=== PATIENT | female | born 1955 | race Caucasian/White ===

== ENCOUNTER 2016-06-11 10:46 | Emergency (ER) | payer OTHER ==
[2016-06-11 11:04] VITALS: BP 168/109; PULSE 78; RESP 16; TEMP 98.6; O2SAT 95
--- NOTE | 2016-06-11 11:30 | EDPHY ---
H & P Chief Complaint Nursing Narrative: C/o bilat eye swelling, facial swelling and redness after photolight treatment Sunday. Denies trouble breathing, itching/ swelling in throat/tongue/mouth. Time Seen by Provider: 06/11/16 11:05 HPI/ROS: CHIEF COMPLAINT: Facial rash and periorbital swelling HISTORY OF PRESENT ILLNESS: The patient presents to the ED with the development of a diffuse erythematous facial rash associated with periorbital swelling for the past 2 days. The patient underwent a photo therapy treatment for rosacea performed by her plastic surgeon several days ago. The patient did have a topical lidocaine ointment prior to that procedure and also had an ultrasonographic jelly applied during the procedure. The patient has been using some topical aloe gel at home over the past 2 days. The patient did develop some crusty discharge from the erythematous skin over the past day. She denies any oral involvement, genital involvement or additional truncal/ extremity involvement. The patient has no significant past medical history. She denies taking additional medications. REVIEW OF SYSTEMS: A comprehensive 10 point review of systems is otherwise negative aside from elements mentioned in the history of present illness. Source: Patient Exam Limitations: No limitations - Personal History Current Tetanus Diphtheria and Acellular Pertussis (TDAP): Yes Tetanus Vaccine Date: within 10 years - Medical/Surgical History Hx Asthma: No Hx Chronic Respiratory Disease: No Hx Diabetes: No Hx Cardiac Disease: No Hx Renal Disease: No Hx Cirrhosis: No Hx Alcoholism: No Hx HIV/AIDS: No Hx Splenectomy or Spleen Trauma: No Other PMH: HTN, tonsillectomy - Social History Smoking Status: Never smoked - Physical Exam Exam: General Appearance: Alert, no distress Eyes: Mild periorbital swelling, no conjunctival injection ENT, Mouth: No oropharyngeal swelling, no intraoral lesions noted Respiratory: There are no retractions, lungs are clear to auscultation Cardiovascular: Regular rate and rhythm Gastrointestinal: Abdomen is soft and nontender, no masses, bowel sounds normal Neurological: A&O, normal motor function, normal sensory exam, normal cranial nerves Skin: Erythematous, slightly crusty rash noted to face consistent with likely contact dermatitis and possible overlying streptococcal pharyngitis Musculoskeletal: Neck is supple nontender Extremities: symmetrical, full range of motion Constitutional: Initial Vital Signs Temperature (C) 37 C 06/11/16 10:59 Heart Rate 78 06/11/16 10:59 Respiratory Rate 16 06/11/16 10:59 Blood Pressure 168/109 H 06/11/16 10:59 O2 Sat (%) 95 06/11/16 10:59 O2 Delivery Mode Room Air Allergies/Adverse Reactions: diphenhydramine HCl [From Benadryl] Allergy (Severe, Verified 06/11/16 11:01) Anxiety Home Medications: Medication Instructions Recorded CALCIUM 06/11/16 Cephalexin [Keflex] 500 mg PO QID #21 cap 06/11/16 Fish Oil 06/11/16 Losartan Potassium 06/11/16 VITAMIN D 06/11/16 predniSONE [prednisone 20mg (RX)] 3 tab PO DAILY #15 tab 06/11/16 Medical Decision Making ED Course/Re-evaluation: The patient is well-appearing without evidence of a likely drug reaction potentially complicated by a mild superficial cellulitis. The patient has no evidence of an intraoral oral rash. She has no evidence of systemic illness. The patient did start taking prednisone earlier today at a 40 mg dose. The patient will be advised to take 60 mg of prednisone daily for the next 5 days. The patient will be started on Keflex to cover for possible milder simplest. The patient is advised to return to the ED for any symptoms of systemic illness , worsening progressive rash, fever, difficulty breathing or other concerns. The patient will follow up with her regular director of occupational health for any unimproved symptoms. Differential Diagnosis: Differential diagnosis considered includes drug reaction, cellulitis, facial abscess, Bass-John syndrome, side-effect from phototherapy procedure Departure - Departure Disposition: Home, Routine, Self-Care Clinical Impression: Facial erythema Condition: Good Instructions: Allergies (ED) Additional Instructions: 1. Please take prednisone 60 mg daily for the next 5 days. 2. Please take antibiotics as prescribed for possible mild skin infection. 3. Please return to the ED or urgent care for markedly worsening symptoms, rash in new area of your body, any rash in your mouth or groin, fever or other concerns. 4. Cool compress to face as needed for next several days. 5. Please follow-up with your director of occupational health in 2-3 days for any unimproved symptoms Referrals: Shraddha Be [Primary Care Provider] - As per Instructions Prescriptions: Cephalexin [Keflex] 500 mg PO QID #21 cap predniSONE [prednisone 20mg (RX)] 3 tab PO DAILY #15 tab
--- NOTE | 2016-06-11 11:34 | UCPHY ---
H & P Time Seen by Provider: 06/11/16 11:05 Patient Type: New HPI/ROS: CHIEF COMPLAINT: Facial rash and periorbital swelling HISTORY OF PRESENT ILLNESS: The patient presents to the ED with the development of a diffuse erythematous facial rash associated with periorbital swelling for the past 2 days. The patient underwent a photo therapy treatment for rosacea performed by her plastic surgeon several days ago. The patient did have a topical lidocaine ointment prior to that procedure and also had an ultrasonographic jelly applied during the procedure. The patient has been using some topical aloe gel at home over the past 2 days. The patient did develop some crusty discharge from the erythematous skin over the past day. She denies any oral involvement, genital involvement or additional truncal/ extremity involvement. The patient has no significant past medical history. She denies taking additional medications. REVIEW OF SYSTEMS: A comprehensive 10 point review of systems is otherwise negative aside from elements mentioned in the history of present illness. Past Medical/Surgical History: Past medical history: Noncontributory Smoking Status: Never smoked Physical Exam: General Appearance: Alert, no distress Eyes: Mild periorbital swelling, no conjunctival injection ENT, Mouth: No oropharyngeal swelling, no intraoral lesions noted Respiratory: There are no retractions, lungs are clear to auscultation Cardiovascular: Regular rate and rhythm Gastrointestinal: Abdomen is soft and nontender, no masses, bowel sounds normal Neurological: A&O, normal motor function, normal sensory exam, normal cranial nerves Skin: Erythematous, slightly crusty rash noted to face consistent with likely contact dermatitis and possible overlying streptococcal pharyngitis Musculoskeletal: Neck is supple nontender Extremities: symmetrical, full range of motion Constitutional: Initial Vital Signs Temperature (C) 37 C 06/11/16 10:59 Heart Rate 78 06/11/16 10:59 Respiratory Rate 16 06/11/16 10:59 Blood Pressure 168/109 H 06/11/16 10:59 O2 Sat (%) 95 06/11/16 10:59 O2 Delivery Mode Room Air Allergies/Adverse Reactions: diphenhydramine HCl [From Benadryl] Allergy (Severe, Verified 06/11/16 11:01) Anxiety Home Medications: Medication Instructions Recorded CALCIUM 06/11/16 Cephalexin [Keflex] 500 mg PO QID #21 cap 06/11/16 Fish Oil 06/11/16 Losartan Potassium 06/11/16 VITAMIN D 06/11/16 predniSONE [prednisone 20mg (RX)] 3 tab PO DAILY #15 tab 06/11/16 Medical Decision Making ED Course/Re-evaluation: The patient is well-appearing without evidence of a likely drug reaction potentially complicated by a mild superficial cellulitis. The patient has no evidence of an intraoral oral rash. She has no evidence of systemic illness. The patient did start taking prednisone earlier today at a 40 mg dose. The patient will be advised to take 60 mg of prednisone daily for the next 5 days. The patient will be started on Keflex to cover for possible milder simplest. The patient is advised to return to the ED for any symptoms of systemic illness , worsening progressive rash, fever, difficulty breathing or other concerns. The patient will follow up with her regular assistant chief of police for any unimproved symptoms. Differential Diagnosis: Differential diagnosis considered includes cellulitis, drug reaction, burn, facial abscess, Bass-John syndrome Departure - Departure Disposition: Home, Routine, Self-Care Clinical Impression: Facial erythema Condition: Good Instructions: Allergies (ED) Additional Instructions: 1. Please take prednisone 60 mg daily for the next 5 days. 2. Please take antibiotics as prescribed for possible mild skin infection. 3. Please return to the ED or urgent care for markedly worsening symptoms, rash in new area of your body, any rash in your mouth or groin, fever or other concerns. 4. Cool compress to face as needed for next several days. 5. Please follow-up with your assistant chief of police in 2-3 days for any unimproved symptoms Referrals: Shraddha Be [Primary Care Provider] - As per Instructions Prescriptions: Cephalexin [Keflex] 500 mg PO QID #21 cap predniSONE [prednisone 20mg (RX)] 3 tab PO DAILY #15 tab - PQRS PQRS Measurement: Not applicable
[2016-06-11] MEDS ORDERED: predniSONE 20 MG TAB ONE (11:48)
[2016-06-11] MEDS ORDERED: predniSONE 20 MG TAB PO ONE (11:50)
== END 2016-06-11 11:52 | disposition home or self-care (01) ==
LOC: CED 10:46
DX: L53.9 Erythematous condition, unspecified (principal); R22.0 Localized swelling, mass and lump, head
CPT/HCPCS: G0463-PO

== ENCOUNTER → 2016-07-25 | Outpatient (CLI) | payer OTHER | LOC: FIMAGING 13:31 | DX: Z12.31 Encounter for screening mammogram for malignant neoplasm of breast (principal) | CPT/HCPCS: G0202 ==

== ENCOUNTER → 2017-07-26 | Outpatient (CLI) | payer OTHER | LOC: FIMAGING 12:03 | PROVIDERS: ATTEND Internal Medicine | DX: Z12.31 Encounter for screening mammogram for malignant neoplasm of breast (principal) ==

== ENCOUNTER → 2018-09-27 | Outpatient (CLI) | payer OTHER | LOC: FIMAGING 08:36 ==

== ENCOUNTER → 2018-10-03 | Outpatient (CLI) | payer OTHER | LOC: FIMAGING 10:12 ==